=== PATIENT | male | born 1955 | race Caucasian/White ===

== ENCOUNTER 2017-05-15 06:11 | Emergency (ER) | payer OTHER ==
[2017-05-15 06:59] LABS: #Basophils 0.1 thou/uL (0.0-0.2); #Eosinphils 0.3 thou/uL (0.0-0.7); #Lymphocytes 1.2 thou/uL (1.20-3.40); #Monocytes 0.5 thou/uL (0.11-0.59); #Neutrophils 6.3 thou/uL (1.40-6.50); %Basophils 0.6 % (0.0-1.0); %Eosinophils 3.1 % (0.0-10.0); %Monocytes 5.5 % (0.0-10.0); Hematocrit 39.2 % (42.0-52.0); Red Blood Cell (RBC) Count 4.11 mill/uL (4.70-6.10); White Blood Cell (WBC) Count 8.3 thou/uL (4.8-10.8)
[2017-05-15 07:20] LABS: ALT (SGPT) 12 U/L (8-55); AST (SGOT) 12 U/L (5-34); Alkaline Phosphatase 78 U/L (40-150); Anion Gap 12 mmol/L (10-20); BUN (Urea Nitrogen) 21 mg/dL (8.4-25.7); Bilirubin, Total 0.3 mg/dL (0.2-1.2); CK (CPK) 86 U/L (30-200); Calc. Creatinine Clearance 0 mL/min (70-130); Calcium 8.4 mg/dL (7.8-10.44); Carbon Dioxide 27 mmol/L (23-31); Chloride 105 mmol/L (98-107); Estimated GFR-MDRD 78; Globulin 2.7 g/dL (2.4-3.5); Lipase 31 U/L (8-78); Protein, Total 6.1 g/dL (5.8-8.1)
[2017-05-15 07:23] LABS: Troponin I 0.021 ng/mL (< 0.028)
--- NOTE | 2017-05-15 07:53 | RAD ---
CHEST 1 VIEW: Date: 05/15/17 HISTORY: 62-year-old male with chest pain. FINDINGS: Poor inspiratory effort. Monitor leads overlie the chest. Minimal cardiomegaly. Bilateral vascular co ngestion. Minimal increased linear and interstitial markings, particularly in the left hilar and infr ahilar region, nonspecific. These could represent some changes of subsegmental atelectasis or very mi ld pneumonitis. No overt confluent process. IMPRESSION: Poor inspiration with minimal cardiomegaly with bilateral vascular congestion and some linear parench ymal changes in the left hilar and infrahilar region, more consistent with subsegmental atelectasis. Continue short-term follow-up. POS: KATHIE
[2017-05-15] MEDS ORDERED: Morphine 4 MG/ML VIAL ONE (11:16)
== END 2017-05-15 11:25 | disposition short-term general hospital (02) ==
LOC: ERS 06:11
DX: R07.9 Chest pain, unspecified (principal); I25.10 Atherosclerotic heart disease of native coronary artery without angina pectoris; E11.9 Type 2 diabetes mellitus without complications; I10 Essential (primary) hypertension; Z79.4 Long term (current) use of insulin; Z79.899 Other long term (current) drug therapy
CPT/HCPCS: 36415; 71010; 80053; 82550; 82553; 83690; 83880; 84484; 85025; 93005; 96374; J2270